=== PATIENT | female | born 1980 | race Asian ===

== ENCOUNTER 2017-09-02 07:19 | Emergency (ER) | payer OTHER ==
[2017-09-02] MEDS ORDERED: predniSONE TAB* 20 MG PO ONE (10:13)
[2017-09-02] MEDS ORDERED: Ketorolac INJ* 60 MG/2 ML VIAL IM ONE (10:13)
--- NOTE | 2017-09-02 10:43 | RAD ---
HISTORY: Pain with ambulation, left foot pain COMPARISONS: None VIEWS: 3, Frontal, lateral, and oblique views of the left foot FINDINGS: BONE DENSITY: Normal. BONES: There is no displaced fracture. JOINTS: There is no arthropathy. ALIGNMENT: There is no dislocation. SOFT TISSUES: Unremarkable. OTHER FINDINGS: None. IMPRESSION: NO ACUTE OSSEOUS INJURY. IF SYMPTOMS PERSIST, RECOMMEND REPEAT IMAGING.
[2017-09-02 11:33] VITALS: BP 000/00
--- NOTE | 2017-09-03 14:33 | ED ---
Gary Hope Angela, scribed for Michael Monteiro MD on 09/02/17 at 0909 . Lower Extremity - HPI Summary HPI Summary: This pt is a 37 y/o female presenting to [facility] c/o left sided back pain radiating down to left leg x2 weeks. She states that when she squats down and stands up, it is very painful. Pt denies pain with ambulation. Denies back injury or trauma in the past. She has not taken any pain medications at home. Pt has only used a medication patch with minimal relief. Pt reports she had a left foot injury 2 months ago and saw her doctor in [facility]. She states her left foot pain is now better. Pt notes that she had pain on her left foot with ambulation. Pt currently now lives in the area, moved to [place] a long time ago but has never seen a doctor in the area. Denies any PMHx. Denies any past surgeries. - History of Current Complaint Chief Complaint: EDExtremityLower Stated Complaint: LEFT FOOT PAIN Time Seen by Provider: 09/02/17 08:51 Hx Obtained From: Patient, Automation Consultant - via IPOP Mechanism Of Injury: Other - none Onset of Pain: Days Onset/Duration: Weeks - 2 Severity Currently: Moderate Pain Intensity: 4 Pain Scale Used: 0-10 Numeric Timing: Constant, Lasting Weeks Location: Radiates To - left sided back pain radiates down left leg Associated Signs And Symptoms: Positive: Other - left foot pain. Negative: Fever, Weakness, Abdominal Pain Aggravating Factor(s): Other - squatting down Alleviating Factor(s): Nothing Able to Bear Weight: Yes - Allergies/Home Medications Allergies/Adverse Reactions: Allergies Allergy/AdvReac Type Severity Reaction Status Date / Time No Known Allergies Allergy Verified 09/02/17 07:38 PMH/Surg Hx/FS Hx/Imm Hx Endocrine/Hematology History: Denies: Hx Diabetes Cardiovascular History: Denies: Hx Hypertension - Surgical History Surgery Procedure, Year, and Place: none Infectious Disease History: Unable to Obtain/Confirm Infectious Disease History: Denies: Traveled Outside the [place] in Last 30 Days - Family History Known Family History: Positive: Unknown - due to language barrier - Social History Alcohol Use: None Substance Use Type: Reports: None Smoking Status (MU): Never Smoked Tobacco Review of Systems Negative: Fever, Chills Negative: Erythema Negative: Sore Throat Negative: Chest Pain Negative: Shortness Of Breath, Cough Negative: Abdominal Pain, Vomiting, Nausea Negative: dysuria, hematuria Musculoskeletal: Other - left sided back pain radiating down left leg, left foot pain Negative: Myalgia, Edema Negative: Rash Neurological: Other - NEG: dizziness All Other Systems Reviewed And Are Negative: Yes Physical Exam - Summary Physical Exam Summary: Constitutional: Well-developed, Well-nourished, Alert. (-) Distressed Skin: Warm, Dry HENT: Normocephalic; Atraumatic Eyes: Conjunctiva normal Neck: Musculoskeletal ROM normal neck. (-) JVD, (-) Stridor, (-) Tracheal deviation Cardio: Rhythm regular, rate normal, Heart sounds normal; Intact distal pulses; The pedal pulses are 2+ and symmetric. Radial pulses are 2+ and symmetric. (-) Murmur Pulmonary/Chest wall: Effort normal. (-) Respiratory distress, (-) Wheezes, (-) Rales Abd: Soft, (-) Tenderness, (-) Distension, (-) Guarding, (-) Rebound Musculoskeletal: (-) Edema. LLE: No bony tenderness. Full ROM. Lower extremity motor strength is 5/5. Lymph: (-) Cervical adenopathy Neuro: Alert, Oriented x3 Psych: Mood and affect Normal Triage Information Reviewed: Yes Vital Signs On Initial Exam: Initial Vitals Temp Pulse Resp BP Pulse Ox 98.2 F 80 16 101/67 100 09/02/17 07:34 09/02/17 07:34 09/02/17 07:34 09/02/17 07:34 09/02/17 07:34 Vital Signs Reviewed: Yes Diagnostics - Vital Signs Vital Signs Temp Pulse Resp BP Pulse Ox 09/02/17 07:34 98.2 F 80 16 101/67 100 - Laboratory Lab Statement: Any lab studies that have been ordered have been reviewed, and results considered in the medical decision making process. - Radiology Left foot XR Xray Interpretation: No Acute Changes - IMPRESSION: No acute osseous injury. If symptoms persist, recommend repeat imaging. Dr. Monteiro has reviewed this radiology report. Radiology Interpretation Completed By: Radiologist Re-Evaluation - Re-Evaluation First Eval Re-Evaluation Time: 09:09 Comment: History is limited due to significant language barrier. Pt requested an talent management manager. Second Eval Re-Evaluation Time: 10:04 Comment: Mandarin talent management manager used through the IPOP. Lower Extremity Course/Dx - Course Course Of Treatment: History was obtained using an talent management manager via IPOP. In the ED course, the pt was given Toradol and Prednisone. Left foot XR was obtained. XR is negative for fracture or dislocation. Pt was discharged home with Naproxen , Prednisone and Tramadol. I reviewed the side effects of these drugs with the pt using the talent management manager. She was advised to establish a PCP and follow up with them. - Diagnoses Provider Diagnoses: Left foot pain, Sciatica Discharge - Discharge Plan Condition: Stable Disposition: HOME Prescriptions: Naproxen TAB* [Naprosyn 250 mg TAB*] 500 mg PO Q8H PRN #30 tab PRN Reason: Pain - Severe predniSONE TAB* [Deltasone TAB*] 50 mg PO DAILY #5 tab traMADol TAB* [Ultram*] 50 mg PO Q6HR PRN #12 tab MDD 4 PRN Reason: Pain Scale 6-10 Patient Education Materials: Sciatica (ED), Arthralgia (ED) Forms: *Work Release Referrals: [facility] [place] PHYSICIAN REFERRAL [Outside] Additional Instructions: Follow establish a primary care provider and follow up in 2-3 days. Prednisone may make you have increased appetite and difficulty sleeping. Toradol may give you an upset stomach. Tramadol may make you sleepy and drowsy. RETURN TO THE EMERGENCY DEPARTMENT FOR CHANGING OR WORSENING SYMPTOMS. The documentation as recorded by the Gary tse Angela accurately reflects the service I personally performed and the decisions made by me, Michael Monteiro MD.
== END 2017-09-02 11:31 | disposition home or self-care (01) ==
LOC: ED 07:19
DX: M79.672 Pain in left foot (principal); M54.30 Sciatica, unspecified side; M54.9 Dorsalgia, unspecified
CPT/HCPCS: 96372; 99282; J1885; J7512

== ENCOUNTER 2018-01-08 22:51 | Emergency (ER) | payer OTHER ==
[2018-01-09 00:01] LABS: ABS Basophils 0 10^3/ul (0-0.2); ABS Eosinophils 0.1 10^3/ul (0-0.6); ABS Lymphocytes 1.5 10^3/ul (1.0-4.8); ABS Monocytes 0.4 10^3/ul (0-0.8); ABS Neutrophils 1.6 10^3/ul (1.5-7.7); ABS Nucleated RBC 0 10^3/ul; Eosinophil % 2.2 % (0-6); Hematocrit 33 % (35-47); Hemoglobin 10.9 g/dl (12.0-16.0); Lymphocyte % 41.6 % (25-47); Mean Corpuscular HGB Conc 34 g/dl (31-36); Mean Corpuscular Hemoglobin 30 pg (27-31); Mean Corpuscular Volume 90 fL (80-97); Mean Platelet Volume 8.3 um3 (7.4-10.4); Nucleated Red Blood Cells % 0.1; Platelet Count 159 10^3/ul (150-450); Red Cell Distribution Width 14 % (10.5-15); White Blood Count 3.5 10^3/ul (3.5-10.8)
[2018-01-09] MEDS ORDERED: Meclizine TAB* 12.5 MG PO ONE (02:09)
--- NOTE | 2018-01-09 02:29 | ED ---
Respiratory - HPI Summary HPI Summary: 37F presents with palpitations for the past month. She said her heart goes fast and slow. She's never been evaluated for this before. She does have family history of heart attacks. no family history of a fib or other abnormalities. No chest pain. She states to develop shortness of breath. She also feels dizzy. States she's had normal appetite. No bowel pain. No nausea and no vomiting. No recent illness. No sore throat. Is not a smoker. Has no medical conditions. Nothing makes it better or worse. not on control. - History of Current Complaint Chief Complaint: EDShortnessOfBreath Stated Complaint: SOB, IRREGULAR Time Seen by Provider: 01/09/18 01:46 Pain Intensity: 0 - Allergy/Home Medications Allergies/Adverse Reactions: Allergies Allergy/AdvReac Type Severity Reaction Status Date / Time No Known Allergies Allergy Verified 09/02/17 07:38 PMH/Surg Hx/FS Hx/Imm Hx Endocrine/Hematology History: Denies: Hx Diabetes Cardiovascular History: Denies: Hx Hypertension - Surgical History Surgery Procedure, Year, and Place: none Infectious Disease History: Unable to Obtain/Confirm Infectious Disease History: Denies: Traveled Outside the [place] in Last 30 Days - Family History Known Family History: Positive: Unknown - due to language barrier - Social History Alcohol Use: None Substance Use Type: Reports: None Smoking Status (MU): Never Smoked Tobacco Review of Systems Negative: Fever Positive: Palpitations. Negative: Chest Pain Positive: Shortness Of Breath All Other Systems Reviewed And Are Negative: Yes Physical Exam Triage Information Reviewed: Yes Vital Signs On Initial Exam: Initial Vitals Temp Pulse Resp BP Pulse Ox 98.4 F 73 18 120/79 100 01/08/18 22:53 01/08/18 22:53 01/08/18 22:53 01/08/18 22:53 01/08/18 22:53 Vital Signs Reviewed: Yes Appearance: Positive: Well-Appearing Skin: Positive: Warm, Dry Head/Face: Positive: Normal Head/Face Inspection Eyes: Positive: Normal, EOMI, BO, Conjunctiva Clear ENT: Positive: Normal ENT inspection, Pharynx normal, TMs normal Respiratory/Lung Sounds: Positive: Clear to Auscultation, Breath Sounds Present , Other - reproducible chest pain Cardiovascular: Positive: Normal, RRR Abdomen Description: Positive: Nontender, Soft Bowel Sounds: Positive: Present Musculoskeletal: Positive: Normal Neurological: Positive: Normal Psychiatric: Positive: Normal Diagnostics - Vital Signs Vital Signs Temp Pulse Resp BP Pulse Ox 01/09/18 01:41 81 16 112/92 100 01/08/18 22:53 98.4 F 73 18 120/79 100 - Laboratory Lab Results: Lab Results 01/08/18 01/08/18 01/09/18 Range/Units 23:49 23:49 01:47 WBC 3.5 (3.5-10.8) 10^3/ul RBC 3.60 L (4.00-5.40) 10^6/ul Hgb 10.9 L (12.0-16.0) g/dl Hct 33 L (35-47) % MCV 90 (80-97) fL MCH 30 (27-31) pg MCHC 34 (31-36) g/dl RDW 14 (10.5-15) % Plt Count 159 (150-450) 10^3/ul MPV 8.3 (7.4-10.4) um3 Neut % (Auto) 44.9 (38-83) % Lymph % (Auto) 41.6 (25-47) % Wythe % (Auto) 10.3 H (0-7) % Eos % (Auto) 2.2 (0-6) % Baso % (Auto) 1.0 (0-2) % Absolute Neuts (auto) 1.6 (1.5-7.7) 10^3/ul Absolute Lymphs (auto) 1.5 (1.0-4.8) 10^3/ul Absolute Monos (auto) 0.4 (0-0.8) 10^3/ul Absolute Eos (auto) 0.1 (0-0.6) 10^3/ul Absolute Basos (auto) 0 (0-0.2) 10^3/ul Absolute Nucleated RBC 0 10^3/ul Nucleated RBC % 0.1 D-Dimer, Quantitative < 200 (Less Than 230) ng/mL Sodium 138 (135-145) mmol/L Potassium 4.1 (3.5-5.0) mmol/L Chloride 104 (101-111) mmol/L Carbon Dioxide 30 (22-32) mmol/L Anion Gap 4 (2-11) mmol/L BUN 16 (6-24) mg/dL Creatinine 0.57 (0.51-0.95) mg/dL Est GFR ( Amer) 145.2 (>60) Est GFR (Non-Af Amer) 120.0 (>60) BUN/Creatinine Ratio 28.1 H (8-20) Glucose 90 (70-100) mg/dL Calcium 9.4 (8.6-10.3) mg/dL Magnesium 2.0 (1.9-2.7) mg/dL Total Bilirubin 0.30 (0.2-1.0) mg/dL AST 15 (13-39) U/L ALT 8 (7-52) U/L Alkaline Phosphatase 39 (34-104) U/L Troponin I 0.00 (<0.04) ng/mL Total Protein 7.3 (6.4-8.9) g/dL Albumin 4.2 (3.2-5.2) g/dL Globulin 3.1 (2-4) g/dL Albumin/Globulin Ratio 1.4 (1-3) TSH 3.42 (0.34-5.60) mcIU/mL Result Diagrams: 01/08/18 23:49 01/08/18 23:49 Lab Statement: Any lab studies that have been ordered have been reviewed, and results considered in the medical decision making process. - Radiology chest Xray Interpretation: No Acute Changes Radiology Interpretation Completed By: ED Physician - EKG No standard instances Cardiac Rate: NL EKG Rhythm: Sinus Rhythm EKG Interpretation: sinus rhythm Disposition - Course Course Of Treatment: 37F presents with palpitations for the past month. She said her heart goes fast and slow. She's never been evaluated for this before. She does have family history of heart attacks. no family history of a fib or other abnormalities. No chest pain. She states to develop shortness of breath. She also feels dizzy. States she's had normal appetite. No bowel pain. No nausea and no vomiting. No recent illness. No sore throat. Is not a smoker. Has no medical conditions. Nothing makes it better or worse. not on control. on exam lungs CTA. reproducible chest pain. ekg normal sinus. troponin neg. d-dimer neg. chest xray normal. will give cardiology referral as may need holter monitor. patient understand and agrees with plan. - Differential Dx - Cardiopulmonary Differential Diagnoses - Cardiopulmonary: Lower Resp Infection, Paroxysmal SVT, Pulmonary Embolism - Diagnoses Provider Diagnoses: Shortness of breath, Palpitation Discharge - Sign-Out/Discharge Documenting (check all that apply): Discharge/Admit/Transfer - Discharge Plan Condition: Good Disposition: HOME Patient Education Materials: Heart Palpitations (ED) Referrals: [facility] [place] [facility]ERRAL [Outside] Emmanuel King MD [Medical Doctor] - - Billing Disposition and Condition Condition: GOOD Disposition: Home
[2018-01-09 03:32] VITALS: BP 99/77
--- NOTE | 2018-01-09 07:41 | RAD ---
HISTORY: chest pain COMPARISONS: None VIEWS: 4: Frontal dual-energy and lateral views of the chest. FINDINGS: CARDIOMEDIASTINAL SILHOUETTE: The cardiomediastinal silhouette is normal. GIANLUCA: The gianluca are normal. PLEURA: The costophrenic angles are sharp. No pleural abnormalities are noted. LUNG PARENCHYMA: The lungs are clear. ABDOMEN: The upper abdomen is clear. There is no subphrenic gas. BONES AND SOFT TISSUES: No bone or soft tissue abnormalities are noted. OTHER: None. IMPRESSION: NO ACTIVE CARDIOPULMONARY DISEASE.
== END 2018-01-09 03:30 | disposition home or self-care (01) ==
LOC: ED 22:51
DX: R06.02 Shortness of breath (principal); R00.2 Palpitations
CPT/HCPCS: 36415; 71046; 80053; 83735; 84443; 84484; 85025; 85379; 93005; 99283